=== PATIENT | female | born 1985 | race African-American/Black ===

== ENCOUNTER 2024-06-17 23:03 | Emergency (ER) | payer OTHER, SELFPAY ==
[2024-06-17 23:09] VITALS: BP 137/106; PULSE 81; RESP 18; TEMP 36.8; O2SAT 96; BMI 39.9
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
--- OUTSIDE RECORDS SUMMARY | 2024-06-18 00:33 | XMS_ITS | Clinical Summary ---
Author Organization [employer] [facility] [employer] [facility] Address [address] [place] [address] Care Team Providers Care Tower Switch Operator Name Role Phone Henna Dobbins MD Primary Care P rovider Allergies Active Allergy Reactions Criticality Noted Date Comments Ciprofloxacin Angioedema High 09/29/2022 Nsaids (Non-Steroidal Anti-I nflammatory Drug) Angioedema High 09/29/2022 Medications gabapentin (NEURONTIN) 800 mg tabletIndicatio ns:Acute right-sided low back pain with right-sided sciatica Take 1 Tablet (800 mg) by mouth three times daily. 270 Tablet 3 12/24/2023 Active baclofen 10 mg tabletIndicatio ns:Acute right-sided low back pain with right-sided sciatica Take 1 Tablet (10 mg) by mouth every 8 hours if needed (muscle spasm). 90 Tablet 12/24/2023 Active traMADoL (ULTRAM) 50 mg tabletIndicatio ns:Acute right-sided low back pain with right-sided sciatica Take 1-2 Tablets (50-100 mg) by mouth 2 times daily if needed for Pain. 90 Tablet 12/31/2023 Active Active Problems No known active problems Social History Tobacco Use Types Packs/Day Years Used Date Smoking Tobacco: Never Passive Smoke Exposure: Never Smokeless Tobacco: Never Tobacco Cessation:Counseling Given: Not Answered Alcohol Use Standard Drinks/Week Comments Never 0 (1 standard drink = 0.6 oz pur e alcohol) PHQ-2 Answer Date Recorded PHQ-2 TOTAL SCORE 4 01/05/2024 Social Connections Answer Date Recorded Do you often feel lonely or isolated from those around you? 4 12/19/2023 Financial Resource Strain Answer Date R ecorded Difficulty of Paying Living Expenses Not on file 12/19/2023 Difficulty of Paying Living Expenses 3 12/19/2023 Food Insecurity Answer Date Recorded Do you worry your food will run out before you are able to buy more? 1 12/19/2023 Transportation Needs Answer Date Record ed Does lack of transportation keep you from medica l appointments? 2 12/19/2023 Does lack of transportation keep you from work, meetings or getting things that you need? 2 12/19/2023 Housing Stability Answer Date Recorded What is your housing situation today? 1 12/19/2023 Interpersonal Safety Answer Date Record ed Are you being hit, kicked, p ushed or yelled at (see row info)? No 12/09/2023 Interpersonal Safety Abuse 12 - 18 Not on file 12/09/2023 Interpersonal Safety Ambulatory Vulnerability No t on file 12/09/2023 Utilities Answer Date Recorded Do you have trouble paying f or utilities (for example, heat, electricity, water, phone)? 2 12/19/2023 Comments No Sex and Gender Information Value Date Recorded Sex Assigned at Not on file Legal Sex Female 4:14 PM CDT Gender Identity Not on file Sexual Orientation Not on file Obstetrics History Last Filed Vital Signs Vital Sign Reading Time Taken Comments Blood Pressure 100/64 12/24/2023 9:56 AM GUMMED TAPE PRESS OPERATOR Pulse 74 12/24/2023 9:56 AM GUMMED TAPE PRESS OPERATOR Temperature 36.9 C (98.4 F) 12/09/2023 11:47 AM CDT Respiratory Rate 16 12/09/2023 11:4 7 AM CDT Oxygen Saturation 100% 12/09/2023 11: 47 AM CDT Inhaled Oxygen Concentration - - Weight 120.7 kg (266 lb 1.6 oz) 12/24/2023 9:56 AM GUMMED TAPE PRESS OPERATOR Height 165.1 cm (5' 5) 12/24/2023 9:56 AM GUMMED TAPE PRESS OPERATOR Body Mass Index 44.28 12/24/2023 9:56 AM GUMMED TAPE PRESS OPERATOR Plan of Treatment Health Maintenance Due Date Last Done Comments Tdap 02/17/1996 HIV for age 15-65 02/17/2000 Hepatitis C screening for ag e 18-79 2003 Tetanus booster 2005 Pap test for age 21-65 2006 COVID-19 vaccine series (2023- season) 2023 Influenza Vaccine (Season Ended) 2024 BMI (ht and wt on same day) for age 18+ 12/23/2024 12/24/2023, 09/30/2022 Depression screening for age 12+ 01/04/2025 01/05/2024, 01/05/2024 Pneumococcal series for age 6-49 Aged Out No longer eligible b ased on patient's age to complete this topic Care Teams Tower Switch Operator Relationship Specialty Start Date End Date Henna Dobbins MD [address] [place] [address] PCP - General Family Practice 09/30/22
[2024-06-18 00:41] VITALS: BP 138/88; PULSE 85; RESP 16; TEMP 36.7
[2024-06-18] MEDS: predniSONE 20 MG TABLET 40 MG PO (01:02)
== END 2024-06-18 00:42 | disposition home or self-care (01) ==
PROVIDERS: Emergency Provider Family Medicine
DX: M54.16 Radiculopathy, lumbar region (principal)
CPT/HCPCS: 99283; 99284; J7512

== ENCOUNTER 2024-06-23 11:07 | Emergency (ER) | payer OTHER, SELFPAY ==
--- OUTSIDE RECORDS SUMMARY | 2024-06-23 11:09 | XMS_ITS | Clinical Summary ---
Author Organization [employer] [facility] Address [address] [place] [address] Care Team Providers Care Conflict Resolution Professional Name Role Phone Henna Dobbins MD Primary [...] Comments Blood Pressure 100/64 12/24/2023 9:56 AM TEST CENTER MANAGER Pulse 74 12/24/2023 9:56 AM TEST CENTER MANAGER Temperature 36.9 C (98.4 F) 12/09/2023 11:47 AM CDT Respiratory Rate 16 12/09/2023 11:4 7 AM CDT Oxygen Saturation 100% 12/09/2023 11: 47 AM CDT Inhaled Oxygen Concentration - - Weight 120.7 kg (266 lb 1.6 oz) 12/24/2023 9:56 AM TEST CENTER MANAGER Height 165.1 cm (5' 5) 12/24/2023 9:56 AM TEST CENTER MANAGER Body Mass Index 44.28 12/24/2023 9:56 AM TEST CENTER MANAGER Plan of Treatment Health Maintenance Due Date [...] age to complete this topic Care Teams Conflict Resolution Professional Relationship Specialty Start Date End Date Henna Dobbins MD [address] [place] [address] PCP - General Family Practice 09/30/22
[2024-06-23 11:14] VITALS: BP 113/86; PULSE 83; RESP 18; TEMP 36.8; O2SAT 100; BMI 40.4
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
[2024-06-23 12:43] VITALS: BP 122/65; PULSE 86; RESP 16; O2SAT 100
== END 2024-06-23 12:46 | disposition home or self-care (01) ==
PROVIDERS: Emergency Provider Family Medicine
DX: M54.16 Radiculopathy, lumbar region (principal); G89.29 Other chronic pain
CPT/HCPCS: 99283; 99284

== ENCOUNTER 2024-08-31 14:10 | Outpatient (CLI) | payer OTHER, SELFPAY | END 2024-08-31 14:11 | disposition home or self-care (01) | LOC: NFLDREF 14:11 | PROVIDERS: PCP Family Medicine; Visit Provider Internal Medicine | DX: M54.9 Dorsalgia, unspecified (principal); R53.83 Other fatigue | CPT/HCPCS: 80048 ==